=== PATIENT | female | born 1990 | race Caucasian/White ===

== ENCOUNTER 2018-11-02 09:59 | Emergency (ER) | payer OTHER, MEDICAID ==
[~2018-11-02] VITALS: Ht 162.6 cm; Wt 86.4 kg
[2018-11-02] MEDS ORDERED: DEPOP150I IM (10:10)
[2018-11-02] MEDS ORDERED: PERTUSS(ACELL),DIPH,TET VAC/PF 0.5 ML VIAL IM ONE (11:30)
[2018-11-02 12:05] VITALS: BP 119/79
== END 2018-11-02 13:09 | disposition home or self-care (01) ==
LOC: EMS 10:02
DX: S51.811A Laceration without foreign body of right forearm, initial encounter (principal); Z91.040 Latex allergy status; W54.0XXA Bitten by dog, initial encounter; Y93.89 Activity, other specified; Y92.89 Other specified places as the place of occurrence of the external cause; Y99.8 Other external cause status
CPT/HCPCS: 90471; 90715